=== PATIENT | female | born 1970 | race Caucasian/White ===

== ENCOUNTER → 2017-09-20 | Outpatient (CLI) | payer SELFPAY ==
[2016-08-01 16:15] VITALS: BP 148/91
[~2017-09-20] MED LIST: ACET-704 PO; ACET325T9 PO; ACET500T68 PO; ALBU2.5V5 NEB; ALBU8.5H6 INH; AMOX1TAB61 PO; AMOX500T PO; CLON0.2T10 PO; CYCL10TA2 PO; DOCU-109 PO; DULO60CA6 PO; ESTR1PAT34 TD; FLAX100031 PO; FLUC150T PO; FLUT1DIS3 IH; HYDR-2678 PO; HYDR1TAB12 PO; IBUP200T77 PO; IPRA3AMP NEB; LAMO25TA5 PO; LORC10TA PO; MAGN2400 PO; NICO1PAT5 TD; OMEP20CA9 PO; ONDA4TAB10 SL; OXYC-327 PO; PALI6TAB3 PO; PENI500T PO; PRED20TA PO; PROAIR HFA8.5 GM INH; SULF1TAB24 PO; ZOLP5TAB PO
--- NOTE | 2017-09-21 09:48 | RAD ---
KNEE RIGHT 3V Clinical Indication: Chronic right knee pain for 10 days, pain in the knee with numbness below the knee. Comparison: None. Technique: Frontal, oblique and lateral views of the right knee are obtained. Findings: No acute fracture or dislocation is seen. No significant degenerative changes are present. No joint effusion is seen. Surrounding soft tissues demonstrate no acute finding. IMPRESSION: No acute osseous injury or significant degenerative changes seen.
== END | disposition home or self-care (01) ==
LOC: RAD 17:00
PROVIDERS: ATTEND Family Medicine
DX: M25.561 Pain in right knee (principal); G89.29 Other chronic pain; R20.0 Anesthesia of skin
CPT/HCPCS: 73562

== ENCOUNTER 2017-12-10 01:06 | Emergency (ER) | payer SELFPAY ==
[2017-12-10] MEDS: IPRATRPIUM/ALBUTEROL 0.5/2.5MG 3 ML NEBU. NEB ×2 (02:07)
== END 2017-12-10 02:17 | disposition left against medical advice (07) ==
LOC: ER 01:06
DX: J45.901 Unspecified asthma with (acute) exacerbation (principal); J44.9 Chronic obstructive pulmonary disease, unspecified; F31.9 Bipolar disorder, unspecified
CPT/HCPCS: 94640; 99283-25; J7620

== ENCOUNTER 2017-12-19 14:12 | Emergency (ER) | payer SELFPAY ==
[2017-12-19] MEDS: methylPREDNISolone SOD SUCC PF 125 MG/2 ML VIAL. IM (14:45)
[2017-12-19] MEDS: IPRATRPIUM/ALBUTEROL 0.5/2.5MG 3 ML NEBU. NEB (14:48)
[2017-12-19 15:18] LABS: INFLUENZA A PATIENT NEGATIVE (NEGATIVE); INFLUENZA B PATIENT NEGATIVE (NEGATIVE); OBC FLU VALID
[2017-12-19] MEDS ORDERED: 0.9 % SOD CHL for STERILE FIELD 10 ML DISP.SYRIN. (15:23)
[2017-12-19 15:53] LABS: ADD MAN DIFF? NO
[2017-12-19 15:59] LABS: BASO # 0.1 x10^3/uL (0.0-0.2); BASO % 1 % (0-3); EOS # 0.3 x10^3/uL (0.0-0.7); EOS % 4 % (0-3); HEMATOCRIT 38.4 % (36.0-47.0); LYMPH % 34 % (24-48); MEAN CORPUSCULAR HEMOGLOBIN 33 pg (25-35); MEAN CORPUSCULAR HGB CONC 34 g/dL (31-37); MEAN CORPUSCULAR VOLUME 96 fL (79-100); MONO # 0.5 x10^3/uL (0.0-1.1); MONO % 6 % (0-9); NEUT # 4.8 x10^3uL (1.8-7.7); NEUT % 55 % (31-73); PLATELET COUNT 284 x10^3/uL (140-400); RED CELL DISTRIBUTION WIDTH 14.4 % (11.5-14.5); WHITE BLOOD COUNT 8.7 x10^3/uL (4.0-11.0)
[2017-12-19 16:06] LABS: ANION GAP 7 (6-14); BLOOD UREA NITROGEN 12 mg/dL (7-20); BUN/CREATININE RATIO 15 (6-20); CALCIUM 8.9 mg/dL (8.5-10.1); CARBON DIOXIDE 31 mmol/L (21-32); CHLORIDE 103 mmol/L (98-107); CREATININE 0.8 mg/dL (0.6-1.0); GFR 77.6; GLUCOSE 109 mg/dL (70-99); SODIUM 141 mmol/L (136-145)
[2017-12-19] MEDS: methylPREDNISolone SOD SUCC PF 125 MG/2 ML VIAL. IV (16:11)
[2017-12-19 16:12] LABS: ALBUMIN 3.1 g/dL (3.4-5.0); ALBUMIN/GLOBULIN RATIO 0.7 (1.0-1.7); ALK PHOS 96 U/L (46-116); ALT (SGPT) 21 U/L (14-59); AST (SGOT) 12 U/L (15-37); TOTAL BILIRUBIN 0.2 mg/dL (0.2-1.0); TOTAL PROTEIN 7.4 g/dL (6.4-8.2)
[2017-12-19 16:12] LABS: D-DIMER 0.27 ug/mlFEU (0.00-0.50)
[2017-12-19 16:17] LABS: TROPONINI < 0.017 ng/mL (0.000-0.055)
== END 2017-12-19 16:51 | disposition home or self-care (01) ==
LOC: ER 14:12
DX: J45.21 Mild intermittent asthma with (acute) exacerbation (principal); F17.200 Nicotine dependence, unspecified, uncomplicated; E66.01 Morbid (severe) obesity due to excess calories; F31.9 Bipolar disorder, unspecified; Z68.39 Body mass index [BMI] 39.0-39.9, adult; Z90.710 Acquired absence of both cervix and uterus; Z88.8 Allergy status to other drugs, medicaments and biological substances; Z88.6 Allergy status to analgesic agent; Z91.041 Radiographic dye allergy status
CPT/HCPCS: 36415; 71046; 80053; 84484; 85025; 85379; 87804; 87804-59; 93005; 94640; 96374; 99285-25; J2930; J7620

== ENCOUNTER 2018-08-06 18:19 | Emergency (ER) | payer OTHER ==
[~2018-08-06] VITALS: Ht 167.6 cm; Wt 122.0 kg
[~2018-08-06 18:19] MED LIST changes: +BENZ100C PO; -IPRA3AMP NEB; +IPRA3AMP29 NEB; +PRED50TA PO; +VENTOLIN HFA18 GM INH
[2018-08-06] MEDS ORDERED: IPRATRPIUM/ALBUTEROL 0.5/2.5MG 3 ML NEBU. NEB ONE (18:45)
[2018-08-06] MEDS ORDERED: ALBUTEROL SULFATE 2.5 MG/3 ML NEBU. CONT NEB ONE (18:45)
[2018-08-06] MEDS ORDERED: predniSONE 20 MG TABLET PO ONE (18:45)
--- NOTE | 2018-08-06 18:47 | PHYS DOC ---
Past Medical History Past Medical History: Asthma, Bipolar, Cancer, Depression, MRSA, Other Additional Past Medical Histor: uterine fibroids, breast and lymph node CA, tumor L kidney Past Surgical History: Hysterectomy Additional Past Surgical Histo: lumpectomy Alcohol Use: None Drug Use: None Adult General Chief Complaint Chief Complaint: SHORTNESS OF BREATH HPI HPI Patient is a 48 year old female who presents with asthma exacerbation. Patient reports she has been having increasing trouble for the last week. She reports she has been using her nebulizer twice a day, but has been using her inhaler about every 1 hour with minimal relief. Today, patient reports she was not feeling well. She got up to meet her child at the door. She reports she became dizzy while on the stairs and fell to the ground. Family at bedside witnessed event and states patient never lost consciousness. She denies any chest pain or palpitations during this event. She reports she has had a productive cough as well. Review of Systems Review of Systems Constitutional: Denies fever or chills [] HENT: Denies nasal congestion or sore throat [] Respiratory: Reports cough, shortness of breath and wheezing Cardiovascular: Denies chest pains or palpitations Musculoskeletal: Denies back pain or joint pain [] Integument: Denies rash or skin lesions [] Neurologic: Denies headache, focal weakness or sensory changes [] All other systems were reviewed and found to be within normal limits, except as documented in this note. Current Medications Current Medications Current Medications Medications (Trade) Dose Ordered Sig/Yanci Start Time Stop Time Status Last Admin Dose Admin Albuterol Sulfate (Ventolin Neb Soln) 10 mg 1X ONCE 08/06/18 18:45 08/06/18 18:46 DC 08/06/18 19:10 10 MG Albuterol/ Ipratropium (Duoneb) 3 ml 1X ONCE 08/06/18 18:45 08/06/18 18:46 DC 08/06/18 19:09 3 ML Heparin Sodium (Porcine) (Hep Lock Adult) 500 unit 1X ONCE 08/06/18 22:00 08/06/18 22:00 DC 08/06/18 21:47 500 UNIT Prednisone (Prednisone) 40 mg 1X ONCE 08/06/18 18:45 08/06/18 18:46 DC 08/06/18 19:37 40 MG Sodium Chloride (NORMAL SALINE FLUSH for STERILE FIELD) 10 ml STK-MED ONCE 08/06/18 19:13 08/06/18 19:14 DC Allergies Allergies Allergies Coded Allergies Type Severity Reaction Last Updated Verified aripiprazole Allergy Intermediate 03/20/16 Yes I S O L A T I O N *CONTACT* Allergy Unknown 03/20/16 Yes naproxen Adverse Reaction Mild GI UPSET 03/20/16 Yes Physical Exam Physical Exam Constitutional: Well developed, well nourished, no acute distress, non-toxic appearance. [] HENT: Normocephalic, atraumatic Eyes: PERRLA, EOMI, conjunctiva normal, no discharge. [] Neck: Normal range of motion, no tenderness, supple, no stridor. [] Cardiovascular:Heart rate regular rhythm, no murmur [] Lungs & Thorax: Breath sounds diminished throughout, expiratory wheezes in all joiner Skin: Warm, dry, no erythema, no rash. [] Neurologic: Alert and oriented X 3, normal motor function, normal sensory function, no focal deficits noted. [] Psychologic: Affect normal, judgement normal, mood normal. [] Current Patient Data Vital Signs Vital Signs Date Time Temp Pulse Resp B/P (MAP) Pulse Ox O2 Delivery O2 Flow Rate FiO2 08/06/18 21:40 88 22 108/52 (70) 98 Room Air 08/06/18 20:02 10.0 08/06/18 18:25 98.4 98.4 Lab Values Laboratory Tests Test 08/06/18 19:31 White Blood Count 10.9 x10^3/uL (4.0-11.0) Red Blood Count 3.92 x10^6/uL (3.50-5.40) Hemoglobin 13.0 g/dL (12.0-15.5) Hematocrit 38.1 % (36.0-47.0) Mean Corpuscular Volume 97 fL (79-100) Mean Corpuscular Hemoglobin 33 pg (25-35) Mean Corpuscular Hemoglobin Concent 34 g/dL (31-37) Red Cell Distribution Width 14.2 % (11.5-14.5) Platelet Count 296 x10^3/uL (140-400) Neutrophils (%) (Auto) 70 % (31-73) Lymphocytes (%) (Auto) 23 % (24-48) L Monocytes (%) (Auto) 4 % (0-9) Eosinophils (%) (Auto) 3 % (0-3) Basophils (%) (Auto) 1 % (0-3) Neutrophils # (Auto) 7.6 x10^3uL (1.8-7.7) Lymphocytes # (Auto) 2.5 x10^3/uL (1.0-4.8) Monocytes # (Auto) 0.5 x10^3/uL (0.0-1.1) Eosinophils # (Auto) 0.3 x10^3/uL (0.0-0.7) Basophils # (Auto) 0.1 x10^3/uL (0.0-0.2) Sodium Level 141 mmol/L (136-145) Potassium Level 3.7 mmol/L (3.5-5.1) Chloride Level 102 mmol/L (98-107) Carbon Dioxide Level 29 mmol/L (21-32) Anion Gap 10 (6-14) Blood Urea Nitrogen 12 mg/dL (7-20) Creatinine 1.0 mg/dL (0.6-1.0) Estimated GFR (Cockcroft-Gault) 59.7 BUN/Creatinine Ratio 12 (6-20) Glucose Level 139 mg/dL (70-99) H Calcium Level 9.5 mg/dL (8.5-10.1) Total Bilirubin 0.1 mg/dL (0.2-1.0) L Aspartate Amino Transferase (AST) 12 U/L (15-37) L Alanine Aminotransferase (ALT) 22 U/L (14-59) Alkaline Phosphatase 92 U/L (46-116) Troponin I Quantitative < 0.017 ng/mL (0.000-0.055) Total Protein 7.5 g/dL (6.4-8.2) Albumin 3.3 g/dL (3.4-5.0) L Albumin/Globulin Ratio 0.8 (1.0-1.7) L Laboratory Tests 08/06/18 19:31 Laboratory Tests 08/06/18 19:31 EKG EKG NSR, rate 85, diffuse ST elevation, no STEMI. Repeat EKG NSR [] Radiology/Procedures Radiology/Procedures PATIENT: GUILLERMINA MARCIAL DACCOUNT: [id number]#: [id number] : 1970 LOCATION: ER AGE: 48 SEX: F EXAM STATUS: REG ER ORD. PHYSICIAN: NAYLA JIMENEZ APRN REASON: near syncope PROCEDURE: PORTABLE CHEST 1V Exam: AP portable chest History: Shortness air for 2 days. Syncope. Comparison: December 19, 2017. Findings: The heart and mediastinal structures are within normal limits for size. Lungs are without infiltrate. No pleural effusion or pneumothorax is identified. Right chest port and catheter are unchanged. Left axillary clips are present. Impression: 1. No acute cardiopulmonary process. Electronically signed by: Glenn Gaspar MD (08/06/2018 8:11 PM) [facility] DICTATED and SIGNED BY: GLENN GASPAR MD DATE: 08/06/182009 [] Course & Med Decision Making Course & Med Decision Making Pertinent Labs and Imaging studies reviewed. (See chart for details) LS cta after nebs. Plan: albuterol rx, Augmentin Rx, Tessalon Perles Rx, prednisone Rx, follow-up with PCP, return precautions reviewed Dragon Disclaimer Dragon Disclaimer This electronic medical record was generated, in whole or in part, using a voice recognition dictation system. Departure Departure Impression: Primary Impression: Asthma exacerbation Additional Impression: Near syncope Disposition: 01 HOME, SELF-CARE Condition: IMPROVED Referrals: DEEPTI GALVAN MD (PCP) Patient Instructions: Asthma, Adult, Syncope Scripts Albuterol Sulfate (PROAIR HFA INHALER) 8.5 Gm Hfa.aer.ad 1 PUFF INH PRN Q6HRS PRN for SHORTNESS OF BREATH, #1 INHALER 0 Refills Prov: NAYLA JIMENEZ APRN 08/06/18 Benzonatate (TESSALON PERLE) 100 Mg Capsule 1 CAP PO TID, #30 CAP Prov: NAYLA JIMENEZ APRN 08/06/18 Prednisone (PREDNISONE) 20 Mg Tablet 40 MG PO DAILY, #14 TAB Prov: NAYLA JIMENEZ APRN 08/06/18 Amoxicillin/Potassium Clav (AUGMENTIN 875-125 TABLET) 1 Each Tablet 1 TAB PO BID, #20 TAB Prov: NAYLA JIMENEZ APRN 08/06/18 Problem Qualifiers Primary Impression: Asthma exacerbation Asthma severity: moderate Asthma persistence: persistent Qualified Codes: J45.41 - Moderate persistent asthma with (acute) exacerbation NAYLA JIMENEZ MUTUAL FUND MANAGER Aug 06, 2018 18:47
--- NOTE | 2018-08-06 18:54 | EKG ---
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
[2018-08-06] MEDS ORDERED: 0.9 % SOD CHL for STERILE FIELD 10 ML DISP.SYRIN. ONE (19:13)
[2018-08-06 19:48] LABS: BASO # 0.1 x10^3/uL (0.0-0.2); BASO % 1 % (0-3); EOS # 0.3 x10^3/uL (0.0-0.7); EOS % 3 % (0-3); HEMATOCRIT 38.1 % (36.0-47.0); LYMPH # 2.5 x10^3/uL (1.0-4.8); LYMPH % 23 % (24-48); MEAN CORPUSCULAR HEMOGLOBIN 33 pg (25-35); MEAN CORPUSCULAR HGB CONC 34 g/dL (31-37); MEAN CORPUSCULAR VOLUME 97 fL (79-100); MONO # 0.5 x10^3/uL (0.0-1.1); MONO % 4 % (0-9); NEUT # 7.6 x10^3uL (1.8-7.7); NEUT % 70 % (31-73); PLATELET COUNT 296 x10^3/uL (140-400); RED BLOOD COUNT 3.92 x10^6/uL (3.50-5.40); RED CELL DISTRIBUTION WIDTH 14.2 % (11.5-14.5); WHITE BLOOD COUNT 10.9 x10^3/uL (4.0-11.0)
[2018-08-06 19:57] LABS: CALCIUM 9.5 mg/dL (8.5-10.1); GFR 59.7; POTASSIUM 3.7 mmol/L (3.5-5.1)
[2018-08-06 20:03] LABS: ALBUMIN 3.3 g/dL (3.4-5.0); ALBUMIN/GLOBULIN RATIO 0.8 (1.0-1.7); TOTAL BILIRUBIN 0.1 mg/dL (0.2-1.0); TOTAL PROTEIN 7.5 g/dL (6.4-8.2)
--- NOTE | 2018-08-06 20:14 | RAD ---
Exam: AP portable chest History: Shortness air for 2 days. Syncope. Comparison: December 19, 2017. Findings: The heart and mediastinal structures are within normal limits for size. Lungs are without infiltrate. No pleural effusion or pneumothorax is identified. Right chest port and catheter are unchanged. Left axillary clips are present. Impression: 1. No acute cardiopulmonary process. Electronically signed by: Glenn Liu MD (08/06/2018 8:11 PM) [facility]
[2018-08-06] MEDS ORDERED: AMOX1TAB61 PO (21:11)
[2018-08-06] MEDS ORDERED: PRED20TA PO (21:11)
[2018-08-06] MEDS ORDERED: BENZ100C PO (21:16)
[2018-08-06] MEDS ORDERED: HEPARIN PF 500 UNIT/5 ML DISP.SYRIN. IV ONE ×2 (21:30→22:00)
[2018-08-06 21:40] VITALS: BP 108/52
[2018-08-06] MEDS ORDERED: PROAIR HFA8.5 GM INH (21:50)
--- NOTE | 2018-08-07 02:17 | EKG ---
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
--- NOTE | 2018-08-07 08:37 | EKG ---
[facility] [address] [place] [address] Test Date: 2018-08-06 Test Time: 20:44:29 Pat Name: GUILLERMINA MARCIAL Department: Room: Gender: Female [employer]: STIVEN : 1970 Requested By: NAYLA JIMENEZ Order Number: [id number] Reading MD: Bogdan Humphrey MD Measurements Intervals [place] Rate: 83 P: 138 [place]: 146 QRS: 42 QRSD: 84 T: 42 QT: 368 QTc: 438 Interpretive Statements SR Electronically Signed On 08-07-2018 10:58:10 CDT by Bogdan Humphrey MD
== END 2018-08-06 21:39 | disposition home or self-care (01) ==
LOC: ER 18:19
DX: J45.41 Moderate persistent asthma with (acute) exacerbation (principal); R55 Syncope and collapse; F31.9 Bipolar disorder, unspecified; Z90.710 Acquired absence of both cervix and uterus; Z88.5 Allergy status to narcotic agent; Z91.041 Radiographic dye allergy status; Z88.8 Allergy status to other drugs, medicaments and biological substances
CPT/HCPCS: 36415; 71045; 80053; 84484; 85025; 93005; 94644; 96374; 99285; J7512; J7613; J7620; 94640

== ENCOUNTER 2018-08-29 22:21 | Emergency (ER) | payer OTHER ==
[~2018-08-29] VITALS: Ht 162.6 cm; Wt 127.0 kg
[2018-08-29] MEDS ORDERED: IPRATRPIUM/ALBUTEROL 0.5/2.5MG 3 ML NEBU. NEB ONE (23:00)
[2018-08-29] MEDS ORDERED: methylPREDNISolone SOD SUCC PF 125 MG/2 ML VIAL. IV ONE (23:00)
[2018-08-29] MEDS ORDERED: KETOROLAC 30 MG/ML VIAL. IV ONE (23:00)
--- NOTE | 2018-08-29 23:20 | PHYS DOC ---
Past Medical History Past Medical History: Asthma, Bipolar, Cancer, Depression, MRSA, Other Additional Past Medical Histor: uterine fibroids, breast and lymph node CA, tumor L kidney Past Surgical History: Hysterectomy Additional Past Surgical Histo: lumpectomy Alcohol Use: None Drug Use: None Adult General Chief Complaint Chief Complaint: SHORTNESS OF BREATH HPI HPI Patient is a 48 year old female with a history of asthma, bipolar, depression, who presents today with 2 complaints. Patient is complaining of cough, shortness of breath and wheezing that has been going on for 4 weeks. She states she was seen in the ED a couple days ago but we did not give her any prescription for nebulizer treatments. She states she's been out of her breathing treatments for 4 weeks. Patient denies any fever. Denies any chest pain. She is also complaining of pain rated at 8 out of 10 on her low back bilaterally worse on the left, left knee pain and right proximal anterior jeronimo pain, patient states she was ambulating today when she fell. Patient denies any loss of consciousness, denies hitting her head on the ground. Patient denies any pain radiating to bilateral lower extremities, denies any loss of bowel bladder function. Review of Systems Review of Systems Constitutional: Denies fever or chills [] Eyes: Denies change in visual acuity, redness, or eye pain [] HENT: Denies nasal congestion or sore throat [] Respiratory: Reports cough, shortness of breath, wheezing Cardiovascular: No additional information not addressed in HPI [] GI: Denies abdominal pain, nausea, vomiting, bloody stools or diarrhea [] : Denies dysuria or hematuria [] Musculoskeletal: Reports bilateral low back pain, right anterior jeronimo pain, left knee pain. Integument: Denies rash or skin lesions [] Neurologic: Denies headache, focal weakness or sensory changes [] All other systems were reviewed and found to be within normal limits, except as documented in this note. Current Medications Current Medications Current Medications Medications (Trade) Dose Ordered Sig/Yanci Start Time Stop Time Status Last Admin Dose Admin Albuterol/ Ipratropium (Duoneb) 3 ml 1X ONCE 08/29/18 23:00 08/29/18 23:01 DC 08/29/18 22:46 3 ML Ketorolac Tromethamine (Toradol 30mg Vial) 30 mg 1X ONCE 08/29/18 23:00 08/29/18 23:01 DC 08/29/18 23:29 30 MG Methylprednisolone Sodium Succinate (SOLU-Medrol 125MG VIAL) 125 mg 1X ONCE 08/29/18 23:00 08/29/18 23:01 DC 08/29/18 23:30 125 MG Allergies Allergies Allergies Coded Allergies Type Severity Reaction Last Updated Verified aripiprazole Allergy Intermediate 03/20/16 Yes I S O L A T I O N *CONTACT* Allergy Unknown 03/20/16 Yes naproxen Adverse Reaction Mild GI UPSET 03/20/16 Yes Physical Exam Physical Exam Constitutional: Well developed, well nourished, no acute distress, non-toxic appearance. [] HENT: Normocephalic, atraumatic, bilateral external ears normal, oropharynx moist, no oral exudates, nose normal. [] Eyes: PERRLA, EOMI, conjunctiva normal, no discharge. [] Neck: Normal range of motion, no tenderness, supple, no stridor. [] Cardiovascular:Heart rate regular rhythm, no murmur [] Lungs & Thorax: Patient is actively short of breath on arrival to the room, she has scattered wheezing throughout her lung bases. Abdomen: Bowel sounds normal, soft, no tenderness, no masses, no pulsatile masses. [] Skin: Warm, dry, no erythema, no rash. [] Back: Diffuse paraspinal muscle tenderness to bilateral lumbar spine, no midline lumbar spine tenderness, no CVA tenderness. [] Extremities: Left anterior knee with bruising. Tenderness on palpation of the anterior aspect of the left knee. Full range of motion to the left knee, negative Trevor sign and negative Ruba's sign negative anterior-posterior drawer sign to the left knee. +2 left pedal pulse. Right anterior jeronimo proximal aspect with the bruising and tenderness to the area. Full range of motion to the right lower extremity. +2 right pedal pulse. Cap refill less than 2 seconds the right lower extremity. Neurologic: Alert and oriented X 3, normal motor function, normal sensory function, no focal deficits noted. [] Psychologic: Affect normal, judgement normal, mood normal. [] Current Patient Data Vital Signs Vital Signs Date Time Temp Pulse Resp B/P (MAP) Pulse Ox O2 Delivery O2 Flow Rate FiO2 08/29/18 23:58 86 24 132/74 (93) 94 Room Air 08/29/18 22:21 98.2 98.2 Lab Values Laboratory Tests Test 08/29/18 23:24 White Blood Count 10.5 x10^3/uL (4.0-11.0) Red Blood Count 4.22 x10^6/uL (3.50-5.40) Hemoglobin 14.0 g/dL (12.0-15.5) Hematocrit 40.6 % (36.0-47.0) Mean Corpuscular Volume 96 fL (79-100) Mean Corpuscular Hemoglobin 33 pg (25-35) Mean Corpuscular Hemoglobin Concent 34 g/dL (31-37) Red Cell Distribution Width 14.1 % (11.5-14.5) Platelet Count 252 x10^3/uL (140-400) Neutrophils (%) (Auto) 60 % (31-73) Lymphocytes (%) (Auto) 32 % (24-48) Monocytes (%) (Auto) 6 % (0-9) Eosinophils (%) (Auto) 2 % (0-3) Basophils (%) (Auto) 1 % (0-3) Neutrophils # (Auto) 6.3 x10^3uL (1.8-7.7) Lymphocytes # (Auto) 3.3 x10^3/uL (1.0-4.8) Monocytes # (Auto) 0.6 x10^3/uL (0.0-1.1) Eosinophils # (Auto) 0.2 x10^3/uL (0.0-0.7) Basophils # (Auto) 0.1 x10^3/uL (0.0-0.2) Sodium Level 144 mmol/L (136-145) Potassium Level 3.6 mmol/L (3.5-5.1) Chloride Level 104 mmol/L (98-107) Carbon Dioxide Level 31 mmol/L (21-32) Anion Gap 9 (6-14) Blood Urea Nitrogen 9 mg/dL (7-20) Creatinine 0.8 mg/dL (0.6-1.0) Estimated GFR (Cockcroft-Gault) 77.2 Glucose Level 127 mg/dL (70-99) H Calcium Level 9.0 mg/dL (8.5-10.1) Magnesium Level 1.6 mg/dL (1.8-2.4) L Troponin I Quantitative < 0.017 ng/mL (0.000-0.055) EF-Oee-F-Type Natriuretic Peptide 116 pg/mL (0-124) Thyroid Stimulating Hormone (TSH) 2.732 uIU/mL (0.358-3.74) Laboratory Tests 08/29/18 23:24 Laboratory Tests 08/29/18 23:24 EKG EKG 22:[address] Pearce sinus rhythm heart rate 83 no STEMI.[] Radiology/Procedures Radiology/Procedures [] Course & Med Decision Making Course & Med Decision Making Pertinent Labs and Imaging studies reviewed. (See chart for details) This is a 48-year-old female patient presenting to the ED today with 2 complaints, patient has asthma and is in the ED for shortness of breath cough and wheezing for 4 weeks. Does not have any breathing treatments at home. She also fell today, is complaining of low back pain, left knee and right jeronimo pain. Patient was given a DuoNeb treatment, Solu-Medrol IV with good relief of her symptoms. She is currently resting comfortably on her bed, no shortness of breath. O2 sats have remained above 96% on room air. Chest x-ray, left knee x- ray, right tib-fib x-ray, lumbar spine x-rays interpreted by Dr. Pearce negative for any acute findings. Patient was discharged with albuterol inhaler. Also given prescription for prednisone, also given prescription for ibuprofen and cyclobenzaprine for her pain. Follow-up with her PCP on Saturday. Instructed to return to the ED at any point symptoms worsen. Dragon Disclaimer Dragon Disclaimer This electronic medical record was generated, in whole or in part, using a voice recognition dictation system. Departure Departure Impression: Primary Impression: Asthma exacerbation Additional Impressions: Lumbar contusion Contusion of left knee Contusion of right lower leg, initial encounter Fall from standing Disposition: 01 HOME, SELF-CARE Condition: STABLE Referrals: NO PCP (PCP) Patient Instructions: Asthma, Adult, Back Pain, Adult, Contusion, Veil-[id number] , Fall Prevention and Home Safety Additional Instructions: You were evaluated in the emergency room for asthma exacerbation as well as low back pain, right leg pain and left knee pain after falling. Your x-rays are negative for any acute findings. Take the prescribed medications as ordered. Follow-up with your doctor on Saturday, come back to the ED at any point symptoms worsen. Scripts Ibuprofen (IBUPROFEN) 800 Mg Tablet 800 MG PO PRN Q6HRS PRN for INFLAMMATION, #90 TAB Prov: ROSEMARIE VAZ NAOMI 08/30/18 Cyclobenzaprine Hcl (CYCLOBENZAPRINE HCL) 10 Mg Tablet 1 TAB PO TID, #30 TAB Prov: JENNIFERROSEMARIE Estrada NAOMI 08/30/18 Albuterol Sulfate (VENTOLIN HFA INHALER) 18 Gm Hfa.aer.ad 2 PUFF INH Q4HRS for FOR ASTHMA, #1 INHALER 1 Refill Prov: ROSEMARIE VAZ APRN 08/30/18 Prednisone (PREDNISONE) 50 Mg Tablet 1 TAB PO DAILY, #5 TAB Prov: JENNIFERNatalieROSEMARIE NAOMI 08/30/18 Benzonatate (TESSALON PERLE) 100 Mg Capsule 1 CAP PO TID, #30 CAP Prov: JENNIFERNatalieROSEMARIE APRN 08/30/18 Albuterol Sulfate (ALBUTEROL SULFATE NEB SOLN) 1.25 Mg/3 Ml Vial.neb 1 VIAL NEB Q4HRS, #150 ML 1 Refill Prov: ROSEMARIE VAZ NAOMI 08/30/18 Problem Qualifiers Primary Impression: Asthma exacerbation Asthma severity: mild Asthma persistence: intermittent Qualified Codes: J45.21 - Mild intermittent asthma with (acute) exacerbation Additional Impressions: Lumbar contusion Encounter type: initial encounter Qualified Codes: S30.0XXA - Contusion of lower back and pelvis, initial encounter Contusion of left knee Encounter type: initial encounter Qualified Codes: S80.02XA - Contusion of left knee, initial encounter Fall from standing Encounter type: initial encounter Qualified Codes: W19.XXXA - Unspecified fall, initial encounter GABBYROSEMARIE LERMA NAOMI Aug 29, 2018 23:20
[2018-08-29 23:31] LABS: BASO # 0.1 x10^3/uL (0.0-0.2); BASO % 1 % (0-3); EOS # 0.2 x10^3/uL (0.0-0.7); EOS % 2 % (0-3); HEMATOCRIT 40.6 % (36.0-47.0); LYMPH # 3.3 x10^3/uL (1.0-4.8); LYMPH % 32 % (24-48); MEAN CORPUSCULAR HEMOGLOBIN 33 pg (25-35); MEAN CORPUSCULAR HGB CONC 34 g/dL (31-37); MEAN CORPUSCULAR VOLUME 96 fL (79-100); MONO # 0.6 x10^3/uL (0.0-1.1); MONO % 6 % (0-9); NEUT # 6.3 x10^3uL (1.8-7.7); NEUT % 60 % (31-73); PLATELET COUNT 252 x10^3/uL (140-400); RED BLOOD COUNT 4.22 x10^6/uL (3.50-5.40); RED CELL DISTRIBUTION WIDTH 14.1 % (11.5-14.5); WHITE BLOOD COUNT 10.5 x10^3/uL (4.0-11.0)
[2018-08-29 23:49] LABS: CREATININE 0.8 mg/dL (0.6-1.0); GFR 77.2; POTASSIUM 3.6 mmol/L (3.5-5.1)
[2018-08-29 23:50] LABS: MAGNESIUM 1.6 mg/dL (1.8-2.4)
[2018-08-30] MEDS ORDERED: VENTOLIN HFA18 GM INH (01:06)
[2018-08-30] MEDS ORDERED: BENZ100C PO (01:06)
[2018-08-30] MEDS ORDERED: IBUP-1060 PO (01:06)
[2018-08-30] MEDS ORDERED: ALBU1.25 NEB (01:06)
[2018-08-30] MEDS ORDERED: PRED50TA PO (01:06)
[2018-08-30] MEDS ORDERED: CYCL10TA2 PO (01:06)
[2018-08-30 01:17] VITALS: BP 118/59
--- NOTE | 2018-08-30 02:15 | RAD ---
PORTABLE CHEST 1V Clinical Indication: SHORT OF BREATH Comparison: AP chest August 06, 2018. Findings: Stable right chest Port-A-Cath, tip in distal SVC. The cardiomediastinal silhouette is normal. Lungs are clear. There is no pneumothorax. No pleural effusion is appreciated. No acute bone abnormality. There are left axillary surgical clips. IMPRESSION: No acute cardiopulmonary process. Electronically signed by: Edward Walker MD (08/30/2018 2:12 AM) [facility]
--- NOTE | 2018-08-30 04:13 | RAD ---
LUMBAR SPINE 2-3V Clinical Indication: BACK PAIN Comparison: CT abdomen and pelvis with contrast, June 20, 2014. Findings: The vertebral body height and alignment are maintained in the lumbar spine. No significant disc space narrowing. Scattered air in the colon. Visualized pelvic bones intact. IMPRESSION: No compression fracture or malalignment. Electronically signed by: Edward Walker MD (08/30/2018 4:10 AM) [facility]
--- NOTE | 2018-08-30 04:14 | RAD ---
KNEE 3 VIEWS LEFT Clinical Indication: LEFT KNEE PAIN Comparison: None. Findings: There is no acute fracture or dislocation. The tricompartmental joint spaces are maintained. The patella is in anatomic position. There is no soft tissue abnormality. There is no joint effusion. IMPRESSION: Normal left knee radiographs. Electronically signed by: Edward Walker MD (08/30/2018 4:11 AM) [facility]
--- NOTE | 2018-08-30 04:17 | RAD ---
RIGHT TIBIA FIBULA AP LATERAL Clinical Indication: LOWER RIGHT LEG PAIN Comparison: None. Findings: The knee and ankle joints are grossly intact. There is no acute fracture or dislocation. There is no significant soft tissue swelling. No radiopaque foreign body is identified. There are calcaneal enthesophytes. IMPRESSION: No acute fracture. Electronically signed by: Edward Walker MD (08/30/2018 4:13 AM) [facility]
--- NOTE | 2018-08-31 03:36 | EKG ---
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
== END 2018-08-30 01:20 | disposition home or self-care (01) ==
LOC: ER 22:21
DX: S30.0XXA Contusion of lower back and pelvis, initial encounter (principal); S80.02XA Contusion of left knee, initial encounter; J45.21 Mild intermittent asthma with (acute) exacerbation; F31.9 Bipolar disorder, unspecified; J45.909 Unspecified asthma, uncomplicated; Z86.14 Personal history of Methicillin resistant Staphylococcus aureus infection; Z90.710 Acquired absence of both cervix and uterus; Z88.5 Allergy status to narcotic agent; Z91.041 Radiographic dye allergy status; Z88.8 Allergy status to other drugs, medicaments and biological substances; W18.39XA Other fall on same level, initial encounter; Y93.89 Activity, other specified; Y92.89 Other specified places as the place of occurrence of the external cause; Y99.8 Other external cause status
CPT/HCPCS: 36415; 71045; 72100; 73562; 73590; 80048; 83735; 83880; 84443; 84484; 85025; 93005; 94640; 96374; 96375; 99285; J1885; J2930; J7620

== ENCOUNTER 2018-10-15 13:28 | Emergency (ER) | payer OTHER ==
[~2018-10-15] VITALS: Ht 167.6 cm; Wt 127.0 kg
[~2018-10-15 13:28] MED LIST changes: +ALBU1.25 NEB; +ALBU2.5V8 INH; +IBUP-1060 PO; -OXYC-327 PO; +OXYC1TAB19 PO; -PROAIR HFA8.5 GM INH
[2018-10-15 14:16] VITALS: BP 150/100
[2018-10-15] MEDS ORDERED: predniSONE 10 MG TABLET PO ONE (15:00)
--- NOTE | 2018-10-15 15:04 | RAD ---
Chest, 2 views, 10/15/2018: HISTORY: Wheezing, shortness of breath Comparison is made to a study from 08/29/2018. A right Port-A-Cath extends into the superior vena cava. There are surgical clips projected over the left axilla and upper chest laterally. The heart size and pulmonary vascularity are normal. No pulmonary infiltrate is seen. There is no evidence of pleural fluid. IMPRESSION: No acute cardiopulmonary abnormality is detected. Electronically signed by: Alonso Calderon MD (10/15/2018 3:00 PM) [facility]
[2018-10-15] MEDS ORDERED: LORA0.5T96 PO (15:13)
[2018-10-15] MEDS ORDERED: PRED20TA PO (15:13)
--- NOTE | 2018-10-15 15:15 | PHYS DOC ---
Past Medical History Past Medical History: Anxiety, Asthma, Bipolar, Cancer, Depression, MRSA, Other Additional Past Medical Histor: uterine fibroids, breast and lymph node CA, tumor L kidney,PTSD Past Surgical History: Hysterectomy Additional Past Surgical Histo: lumpectomy Alcohol Use: None Drug Use: None Adult General Chief Complaint Chief Complaint: ANXIETY/PANIC ATTACK HPI HPI Patient is a 48 year old female who presents with anxiety and wheezing. She states that she has anxiety and has been going to [facility] and they gave her a shot of medication as not working she states that her anxiety is high so she is smoking more and is affecting her COPD and making her wheezing more and then she has been having to take more nebulizer treatments which makes her even more anxious. States that she coughs up yellow mucus every now and then. Afebrile. Patient is wanting a prescription for anxiety medications and sleeping medications. Review of Systems Review of Systems Constitutional: Denies fever or chills [] Eyes: Denies change in visual acuity, redness, or eye pain [] HENT: Denies nasal congestion or sore throat [] Respiratory: cough. denies shortness of breath [] Cardiovascular: No additional information not addressed in HPI [] GI: Denies abdominal pain, nausea, vomiting, bloody stools or diarrhea [] : Denies dysuria or hematuria [] Musculoskeletal: Denies back pain or joint pain [] Integument: Denies rash or skin lesions [] Neurologic: Anxiety. Denies headache, focal weakness or sensory changes [] All other systems were reviewed and found to be within normal limits, except as documented in this note. Current Medications Current Medications Current Medications Medications (Trade) Dose Ordered Sig/Yanci Start Time Stop Time Status Last Admin Dose Admin Prednisone (Prednisone) 50 mg 1X ONCE 10/15/18 15:00 10/15/18 15:01 DC Allergies Allergies Allergies Coded Allergies Type Severity Reaction Last Updated Verified aripiprazole Allergy Intermediate 03/20/16 Yes I S O L A T I O N *CONTACT* Allergy Unknown 03/20/16 Yes naproxen Adverse Reaction Mild GI UPSET 03/20/16 Yes Physical Exam Physical Exam Constitutional: Well developed, well nourished, no acute distress, non-toxic appearance. [] HENT: Normocephalic, atraumatic, bilateral external ears normal, oropharynx moist, no oral exudates, nose normal. [] Eyes: PERRLA, EOMI, conjunctiva normal, no discharge. [] Neck: Normal range of motion, no tenderness, supple, no stridor. [] Cardiovascular:Heart rate regular rhythm, no murmur [] Lungs & Thorax: Inspiratory, expiratory wheezes. Abdomen: Bowel sounds normal, soft, no tenderness, no masses, no pulsatile masses. [] Skin: Warm, dry, no erythema, no rash. [] Back: No tenderness, no CVA tenderness. [] Extremities: No tenderness, no cyanosis, no clubbing, ROM intact, no edema. [] Neurologic: Alert and oriented X 3, normal motor function, normal sensory function, no focal deficits noted. [] Psychologic: Anxious, Affect normal, judgement normal, mood normal. [] Current Patient Data Vital Signs Vital Signs Date Time Temp Pulse Resp B/P (MAP) Pulse Ox O2 Delivery O2 Flow Rate FiO2 10/15/18 14:16 99.0 100 18 150/100 (117) 99 Room Air 99.0 EKG EKG [] Radiology/Procedures Radiology/Procedures [] Impressions: [facility] [address] [place] [address] IMAGING REPORT Signed PATIENT: GUILLERMINA MARCIAL ACCOUNT: [id number] : 1970 LOCATION: ER AGE: 48 SEX: F EXAM STATUS: REG ER ORD. PHYSICIAN: SAMARIA WHITE APRN REASON: wheezing, soa PROCEDURE: CHEST PA & LATERAL Chest, 2 views, 10/15/2018: HISTORY: Wheezing, shortness of breath Comparison is made to a study from 08/29/2018. A right Port-A-Cath extends into the superior vena cava. There are surgical clips projected over the left axilla and upper chest laterally. The heart size and pulmonary vascularity are normal. No pulmonary infiltrate is seen. There is no evidence of pleural fluid. IMPRESSION: No acute cardiopulmonary abnormality is detected. Electronically signed by: Alonso Calderon MD (10/15/2018 3:00 PM) [facility] DICTATED and SIGNED BY: ALONSO CALDERON MD DATE: 10/15/18 5338 Course & Med Decision Making Course & Med Decision Making Patient is a 48 year old female who presents with anxiety and wheezing. She states that she has anxiety and has been going to [facility] and they gave her a shot of medication as not working she states that her anxiety is high so she is smoking more and is affecting her COPD and making her wheezing more and then she has been having to take more nebulizer treatments which makes her even more anxious. States that she coughs up yellow mucus every now and then. Afebrile. Patient is wanting a prescription for anxiety medications and sleeping medications. She was told that we don't give prescriptions for anxiety and sleeping medications. Patient needs to call [facility] follow-up with him tomorrow. Patient states she will call them tomorrow and follow up with them. Patient is refusing a respiratory treatment stating that she has them at home and she will just take them at home if needed. Patient speaks in full clear sentences. Lungs have inspiratory and expiratory wheezing. Patient denies shortness of air, dizziness, chest pain, nausea, vomiting, fever. Patient will be put on prednisone and states that she will use her breathing treatments at home. Patient is also given a prescription for 2 doses of Ativan. Patient states that she must follow-up with [facility] since they are now following her and working with her on treating her anxiety and mental health problems. Patient also needs to work on getting a primary care provider. Patient is stable and in no distress. Her vital signs are within normal limits. She is ambulatory with a steady gait. She is in no respiratory distress. Chest x-ray shows no acute findings. Staff Physician Addendum: I was working in the ER during the course of this patient's visit. I was available for consultation as needed, but I was not directly involved in the care of this patient. Dragon Disclaimer Dragon Disclaimer This electronic medical record was generated, in whole or in part, using a voice recognition dictation system. Departure Departure Impression: Primary Impression: Asthma exacerbation Additional Impression: Anxiety Disposition: 01 HOME, SELF-CARE Condition: STABLE Referrals: NO PCP (PCP) Patient Instructions: Anxiety and Panic Attacks, Asthma, Adult Additional Instructions: FOLLOW UP WITH [facility] TOMORROW. Scripts Lorazepam (ATIVAN) 0.5 Mg Tablet 0.5 MG PO BID for 2 Days, #4 TAB Prov: SAMARIA WHITE APRN 10/15/18 Prednisone (PREDNISONE) 20 Mg Tablet 1 TAB PO DAILY, #5 TAB Prov: SAMARIA WHITE APRN 10/15/18 Problem Qualifiers Primary Impression: Asthma exacerbation Asthma severity: mild Asthma persistence: intermittent Qualified Codes: J45.21 - Mild intermittent asthma with (acute) exacerbation SAMARIA WHITE APRN Oct 15, 2018 15:15 CLARITA ALEJANDRO MD Oct 16, 2018 13:51
== END 2018-10-15 15:19 | disposition home or self-care (01) ==
LOC: ER 13:28
DX: F41.9 Anxiety disorder, unspecified (principal); J45.901 Unspecified asthma with (acute) exacerbation; F31.9 Bipolar disorder, unspecified; F43.10 Post-traumatic stress disorder, unspecified; Z91.041 Radiographic dye allergy status; Z88.5 Allergy status to narcotic agent; Z88.8 Allergy status to other drugs, medicaments and biological substances
CPT/HCPCS: 71046; 99284

== ENCOUNTER 2018-10-21 03:31 | Emergency (ER) | payer OTHER ==
[~2018-10-21] VITALS: Ht 165.1 cm; Wt 127.0 kg
[~2018-10-21 03:31] MED LIST changes: +LORA0.5T96 PO
[2018-10-21 03:40] VITALS: BP 119/80
[2018-10-21] MEDS ORDERED: LORA-434 PO (04:04)
--- NOTE | 2018-10-21 04:11 | PHYS DOC ---
Past Medical History Past Medical History: Anxiety, Asthma, Bipolar, Cancer, Depression, MRSA, Other Additional Past Medical Histor: uterine fibroids, breast and lymph node CA, tumor L kidney,PTSD Past Surgical History: Hysterectomy, Other Additional Past Surgical Histo: lumpectomy Alcohol Use: None Drug Use: None Adult General Chief Complaint Chief Complaint: ANXIETY/PANIC ATTACK HPI HPI Patient is a 48 year old female presenting with anxiety. She used methamphetamine 15 days ago and then about 7 days ago she started having trouble sleeping feeling twitching every time she tries to fall sleep. Not suicidal not hearing voices went to urgent care psychiatric and did get in [place] last week she has a history of psychotic episodes she tells me however she is not feeling psychotic she is just anxious she wants something to help her sleep. Review of Systems Review of Systems Constitutional: Denies fever or chills [] Eyes: Denies change in visual acuity, redness, or eye pain [] HENT: Denies nasal congestion or sore throat [] Respiratory: Denies cough or shortness of breath [] All other systems were reviewed and found to be within normal limits, except as documented in this note. Allergies Allergies Allergies Coded Allergies Type Severity Reaction Last Updated Verified aripiprazole Allergy Intermediate 03/20/16 Yes I S O L A T I O N *CONTACT* Allergy Unknown 03/20/16 Yes naproxen Adverse Reaction Mild GI UPSET 03/20/16 Yes Physical Exam Physical Exam Constitutional: Well developed, well nourished, no acute distress, non-toxic appearance. [] HENT: Normocephalic, atraumatic, bilateral external ears normal, oropharynx moist, no oral exudates, nose normal. [] Eyes: PERRLA, EOMI, conjunctiva normal, no discharge. [] Neck: Normal range of motion, no tenderness, supple, no stridor. [] Cardiovascular:Heart rate regular rhythm, no murmur [] Lungs & Thorax: Bilateral breath sounds clear to auscultation [] Abdomen: Bowel sounds normal, soft, no tenderness, no masses, no pulsatile masses. [] Skin: Warm, dry, no erythema, no rash. [] Back: No tenderness, no CVA tenderness. [] Extremities: No tenderness, no cyanosis, no clubbing, ROM intact, no edema. [] Neurologic: Alert and oriented X 3, normal motor function, normal sensory function, no focal deficits noted. [] Psychologic: MILD ANXIETY Current Patient Data Vital Signs Vital Signs Date Time Temp Pulse Resp B/P (MAP) Pulse Ox O2 Delivery O2 Flow Rate FiO2 10/21/18 03:40 98.6 100 24 119/80 (93) 96 Room Air 98.6 EKG EKG [] Radiology/Procedures Radiology/Procedures [] Course & Med Decision Making Course & Med Decision Making Pertinent Labs and Imaging studies reviewed. (See chart for details) []48-year-old female with the above past medical history presenting with anxiety problem. It is just that she was getting to sleep she has no acute or focal medical complaints at this point in time we'll give the patient prescription for Ativan and she was instructed to follow-up for her routine mental health. She is not suicidal she is not having any acute red flags she is calm and cooperative in the emergency room Dragon Disclaimer Dragon Disclaimer This electronic medical record was generated, in whole or in part, using a voice recognition dictation system. Departure Departure Impression: Primary Impression: Anxiety Disposition: 01 HOME, SELF-CARE Condition: STABLE Referrals: NO PCP (PCP) Patient Instructions: Anxiety and Panic Attacks, [id number] Scripts Lorazepam (ATIVAN) 1 Mg Tablet 1 MG PO BID, #20 TAB Prov: CLARITA ALEJANDRO MD 10/21/18 CLARITA ALEJANDRO MD Oct 21, 2018 04:11
== END 2018-10-21 04:35 | disposition home or self-care (01) ==
LOC: ER 03:31
DX: F41.9 Anxiety disorder, unspecified (principal); J45.909 Unspecified asthma, uncomplicated; F32.9 Major depressive disorder, single episode, unspecified; Z90.710 Acquired absence of both cervix and uterus
CPT/HCPCS: 99284

== ENCOUNTER → 2019-04-14 | Outpatient (CLI) | payer OTHER ==
[~2019-04-14] MED LIST changes: +ALBUTEROL SULFATE 2.5 MG/3 ML NEBU. NEB ONE; -HYDR1TAB12 PO; +HYDR1TAB13 PO; +LORA-434 PO; +OMEP20CA10 PO; -OMEP20CA9 PO
== END | disposition home or self-care (01) ==
LOC: PF 08:12
PROVIDERS: ATTEND Internal Medicine
DX: J45.909 Unspecified asthma, uncomplicated (principal); F17.210 Nicotine dependence, cigarettes, uncomplicated
CPT/HCPCS: 94060; 94640; J7613